=== PATIENT | male | born 1945 | race Caucasian/White ===

== ENCOUNTER 2017-08-27 14:58 | Emergency (ER) | payer BC ==
[2017-08-27 18:24] VITALS: BP 149/77
--- NOTE | 2017-08-27 20:18 | UC ---
Page Ragland Abhishek, scribed for Lucas Spear MD on 08/27/17 at 1923 . General HPI - HPI Summary HPI Summary: This patient is a 72 year old M presenting to [facility] accompanied by with a c/o of chest congestion and cough since week and a half ago. Pt believes symptoms are due to a visit to [place] a week and half ago. The patient rates the pain 0/10 in severity. Symptoms alleviated by nothing. Patient reports productive cough (white, yellow), diarrhea, VELASQUEZ, and no current pain unless aggravated with cough. Patient denies fever, and abdominal pain. PMHx includes asthma, Bronchitis (treated with medrol dose pack), HLD, enlarged prostate and GERD. Pt denies PMHx of DM, vitamin D deficiency, - History of Current Complaint Chief Complaint: UCRespiratory Stated Complaint: LOW GRADE TEMP/COUGH Time Seen by Provider: 08/27/17 18:50 Hx Obtained From: Patient Onset/Duration: Lasting Weeks - 1 week and a half, Still Present Timing: Constant Current Severity: None Pain Intensity: 0 Aggravating: Pt feels pain in throat when aggravated by cough Associated Signs & Symptoms: Positive: Headache - Sinus VELASQUEZ - Allergy/Home Medications Allergies/Adverse Reactions: Allergies Allergy/AdvReac Type Severity Reaction Status Date / Time No Known Allergies Allergy Verified 08/27/17 18:24 Home Medications: Home Medications Finasteride [Proscar] 5 mg PO DAILY 08/27/17 [History Confirmed 08/27/17] Gabapentin CAP(*) [Neurontin 300 CAP(*)] 300 mg PO BEDTIME 08/27/17 [History Confirmed 08/27/17] Multiple Vitamin [Multivitamins] 2 tab PO DAILY 08/27/17 [History Confirmed 08/05] PMH/Surg Hx/FS Hx/Imm Hx Cardiovascular History: Hypertension Respiratory History: Asthma, Bronchitis - Last episode 2012 - Surgical History Surgical History: Yes Surgery Procedure, Year, and Place: 1978 - open heart surgery - septal defect - Family History Known Family History: Positive: Other - [place], CVA - Social History Alcohol Use: Rare Substance Use Type: None Smoking Status (MU): Former Smoker Review of Systems Constitutional: Negative Skin: Negative Eyes: Negative ENT: Nasal Discharge, Other - Productive cough (white,yellow) Respiratory: Cough, Other - Chest congestion Cardiovascular: Negative Gastrointestinal: Diarrhea Genitourinary: Negative Motor: Negative Neurovascular: Negative Musculoskeletal: Negative Neurological: Negative Psychological: Negative All Other Systems Reviewed And Are Negative: Yes - Comments Additional Review of Systems Comments: Negative fever, and stomach pain. Physical Exam Triage Information Reviewed: Yes Vital Signs: Initial Vital Signs Temp 98.6 F 08/27/17 18:22 Pulse 66 08/27/17 18:22 Resp 18 08/27/17 18:22 BP 149/77 08/27/17 18:22 Pulse Ox 98 08/27/17 18:22 Vital Signs Reviewed: Yes - Additional Comments General: well-appearing, no pain distress Skin: warm, color reflects adequate perfusion, dry Head: normal Eyes: EOMI, JYOTI ENT: normal Neck: supple, nontender Respiratory: Bilateral rhonchi present in both lungs, no respiratory distress Cardiovascular: RRR Abdomen: soft, nontender Bowel: present Musculoskeletal: normal, strength/ROM intact Neurological: normal, sensory/motor intact, A&O x3 Psychological: affect/mood appropriate Course/Dx - Course Course Of Treatment: Medications reviewed, elevated blood pressure noted. - Differential Dx - Multi-Symptom Provider Diagnoses: BRONCHITIS WITH ASTHMA EXACERBATION Discharge - Discharge Plan Condition: Stable Disposition: HOME Prescriptions: Levofloxacin TAB* [Levaquin TAB*] 500 mg PO DAILY #10 tab Methylprednisolone [Medrol Dosepak 4 MG*] 4 mg PO .SEE RAMIRO INSTRUCTION #1 ramiro Patient Education Materials: Asthma (ED), Acute Bronchitis (ED) Referrals: Babak ESPOSITO,Naveed Villarreal [Primary Care Provider] - Additional Instructions: FOLLOW UP WITH YOUR DOCTOR. GET RECHECKED FOR ANY WORSENING OF YOUR CONDITION OR QUESTIONS OR CONCERNS. The documentation as recorded by the Page lomeli Abhishek accurately reflects the service I personally performed and the decisions made by me, Lucas Spear MD.
== END 2017-08-27 19:00 | disposition home or self-care (01) ==
LOC: UCEAST 14:58
DX: J45.901 Unspecified asthma with (acute) exacerbation (principal); I10 Essential (primary) hypertension; Z87.891 Personal history of nicotine dependence
CPT/HCPCS: 99202; G0463

== ENCOUNTER 2017-11-28 14:39 | Emergency (ER) | payer BC ==
--- NOTE | 2017-11-28 15:15 | UC ---
Elbow Pain - HPI Summary HPI Summary: ABOUT 2 WEEKS AGO SLIPPED ON THE SNOW AND STRUCK LEFT ELBOW ON BLACK[place]. SWELLING IS PERSISTENT WITH TENDERNESS OVER OLECRANON. NO ERYTHEMA OR WARMTH. NO FEVERS. - History of Current Complaint Chief Complaint: UCUpperExtremity Stated Complaint: ELBOW PAIN Time Seen by Provider: 11/28/17 15:02 Hx Obtained From: Patient Onset/Duration: Weeks, Traumatic, Still Present Severity Initially: Moderate Severity Currently: Moderate Pain Intensity: 2 Pain Scale Used: 0-10 Numeric Location Of Pain: Is Discrete @ - LEFT ELBOW Character: Aching Aggravating Factor(s): Movement - PRESSURE Alleviating Factor(s): Rest Associated Signs And Symptoms: Positive: Swelling. Negative: Redness, Bruising , Fever, Weakness - Allergies/Home Medications Allergies/Adverse Reactions: Allergies Allergy/AdvReac Type Severity Reaction Status Date / Time No Known Allergies Allergy Verified 08/27/17 18:24 PMH/Surg Hx/FS Hx/Imm Hx Endocrine History: Dyslipidemia Cardiovascular History: Hypertension Respiratory History: Asthma GI/ History: Gastroesophageal Reflux Other GI/ History: ENLARGED PROSTATE Other Neurological History: PERIPHERAL NEUROPATHY - Surgical History Surgical History: Yes Surgery Procedure, Year, and Place: 1978 - open heart surgery - septal defect - Family History Known Family History: Positive: Hypertension, Other - [place], CVA - Social History Alcohol Use: None Substance Use Type: None Smoking Status (MU): Former Smoker Review of Systems Constitutional: Negative Skin: Negative Respiratory: Negative Cardiovascular: Negative Gastrointestinal: Negative Musculoskeletal: Arthralgia, Edema All Other Systems Reviewed And Are Negative: Yes Physical Exam Triage Information Reviewed: Yes Appearance: Well-Appearing, No Pain Distress, Well-Nourished Vital Signs: Initial Vital Signs Temp 98.7 F 11/28/17 14:48 Pulse 73 11/28/17 14:48 Resp 18 11/28/17 14:48 BP 153/60 11/28/17 14:48 Pulse Ox 97 11/28/17 14:48 Vital Signs Reviewed: Yes Eyes: Positive: Conjunctiva Clear ENT: Positive: Hearing grossly normal Neck: Positive: Supple Respiratory: Positive: No respiratory distress, No accessory muscle use Cardiovascular: Positive: Pulses Normal Abdomen Description: Positive: Soft Musculoskeletal: Positive: Strength Intact, ROM Intact, Edema @ - LEFT ELBOW - OLECRANON BURSA, Other: - TTP LEFT OLECRANON PROCESS Neurological: Positive: Alert Psychological: Positive: Age Appropriate Behavior Skin: Negative: rashes Diagnostics - Radiology LEFT ELBOW XRAY Xray Interpretation: Positive (See Comments) - OSTEOARTHRITIS Radiology Interpretation Completed By: Radiologist Elbow Pain Course/Dx - Differential Dx/Diagnosis Provider Diagnoses: LEFT OLECRANON BURSITIS Discharge - Discharge Plan Condition: Stable Disposition: HOME Patient Education Materials: Elbow Bursitis (ED) Referrals: Babak ESPOSITO,Naveed Villarreal [Primary Care Provider] - If Needed Ruth Ann Saavedra MD [Medical Doctor] - If Needed Additional Instructions: XRAY TODAY UNREMARKABLE. YOU HAVE OLECRANON (ELBOW) BURSITIS. REST, COMPRESS WITH AN CHOCO BANDAGE AND AVOID TRAUMA TO THE AREA. IBUPROFEN IF NEEDED FOR DISCOMFORT. NO INDICATION TO DRAIN TODAY. IT SHOULD GO DOWN OVER TIME. CALL [facility]THO FOR F/U IF YOUR SYMPTOMS DO NOT IMPROVE OVER THE NEXT SEVERAL WEEKS. GO TO THE ER WITHOUT FAIL IF YOU DEVELOP FEVER, REDNESS, WARMTH, INCREASED PAIN OR ANY OTHER CONCERNING SYMPTOMS. YOUR BLOOD PRESSURE WAS ELEVATED TODAY. THIS MAY BE DUE TO YOUR ACUTE CONDITION. MONITOR AND FOLLOW-UP WITH YOUR PCP WITHIN 4 WEEKS IF IT HAS NOT RETURNED TO NORMAL.
--- NOTE | 2017-11-28 15:46 | RAD ---
INDICATION: Left elbow injury 2 weeks ago. Pain at the level of the olecranon COMPARISON: None TECHNIQUE: AP, lateral, and oblique views were obtained. FINDINGS: There is no acute bony change. There is moderate spurring about the proximal ulna and olecranon with soft tissue swelling over the olecranon which could be related to bursitis. There is no joint effusion. IMPRESSION: OSTEOARTHRITIS. POSSIBLE OLECRANON BURSITIS
[2017-11-28 15:50] VITALS: BP 153/60
== END 2017-11-28 16:25 | disposition home or self-care (01) ==
LOC: UCEAST 14:39
DX: M70.22 Olecranon bursitis, left elbow (principal); Y93.29 Activity, other involving ice and snow; M19.022 Primary osteoarthritis, left elbow
CPT/HCPCS: 99212; G0463

== ENCOUNTER 2019-02-13 13:44 | Emergency (ER) | payer BC ==
--- NOTE | 2019-02-13 14:42 | UC ---
Lower Extremity/Ankle HPI - HPI Summary HPI Summary: 73 y/o male presents to the urgent care c/o left foot pain for the past week. Pain in localized at the base on the first big toe and then radiating to the the medial aspect of foot and dorsal side. About 2 days ago he notice a rash on the dorsal side of his mid foot which is increasing in size. He has been walking a lot since he has to take her to different medical appt for her cancer. Pain today is 2/10 at rest and 7/10 w/ walking or movement or bending his big toe. He has taking Tylenol. Pt denies Hx of Gout, fever, calf pain, SOB , abdominal pain, N/v/d, numbness or tingling sensation over the left foot. - History of Current Complaint Chief Complaint: UCLowerExtremity Stated Complaint: FOOT PAIN Time Seen by Provider: 02/13/19 14:30 Hx Obtained From: Patient Onset/Duration: Gradual Onset Severity Initially: Mild Severity Currently: Moderate Pain Intensity: 7 - w/ movement or walking Pain Scale Used: 0-10 Numeric Aggravating Factor(s): Ambulation Alleviating Factor(s): Rest, OTC Meds Able to Bear Weight: Yes - Risk Factors Gout Risk Factors: Age Over 40, Male, Hypertension, Obesity DVT Risk Factors: Negative Septic Arthritis Risk Factor: Negative - Allergies/Home Medications Allergies/Adverse Reactions: Allergies Allergy/AdvReac Type Severity Reaction Status Date / Time No Known Allergies Allergy Verified 02/13/19 14:34 Home Medications: Home Medications Albuterol HFA INHALER* [Ventolin HFA Inhaler*] 2 puff INH Q6H PRN 02/13/19 [ History Confirmed 02/13/19] Cetirizine* [ZyrTEC 10 MG TAB*] 10 mg PO DAILY PRN 02/13/19 [History Confirmed 02/13/19] Everly-3S/Dha/Epa/Fish Oil [Fish Oil 1,200 mg Softgel] 1 each PO DAILY 02/13/19 [ History Confirmed 02/13/19] PMH/Surg Hx/FS Hx/Imm Hx Previously Healthy: Yes Endocrine History: Dyslipidemia Cardiovascular History: Hypertension Other Neurological History: B/L lower leg paresthesias - Surgical History Surgical History: Yes Surgery Procedure, Year, and Place: 1978 - open heart surgery - septal defect - Family History Known Family History: Positive: Hypertension, Other - [place], CVA - Social History Alcohol Use: Rare Substance Use Type: None Smoking Status (MU): Former Smoker When Did the Patient Quit Smoking/Using Tobacco: 1979 Review of Systems All Other Systems Reviewed And Are Negative: Yes Constitutional: Positive: Negative Skin: Positive: Rash - redness over his mid foot Eyes: Positive: Negative ENT: Positive: Negative Respiratory: Positive: Negative Cardiovascular: Positive: Negative Gastrointestinal: Positive: Negative Genitourinary: Positive: Negative Motor: Positive: Negative Neurovascular: Positive: Negative Musculoskeletal: Positive: Decreased ROM - left foot, Other: - left foot pain w / mild swelling Neurological: Positive: Negative Psychological: Positive: Negative Is Patient Immunocompromised?: No Physical Exam - Summary Physical Exam Summary: Vital Signs Reviewed: Yes General : well developed, well nourished obese male w/o any apparent distress Eyes: Positive: Conjunctiva Clear - PERRLA, EOMI ENT: Positive: Normal ENT inspection, Hearing grossly normal, Pharynx normal, TMs normal Neck: Positive: Supple, Nontender, No Lymphadenopathy Respiratory: Positive: Chest non-tender, Lungs clear, Normal breath sounds, No respiratory distress Cardiovascular: Positive: RRR, No Murmur, Pulses Normal Abdomen Description: Positive: Nontender, No Organomegaly, Soft. Negative: CVA Tenderness (R), CVA Tenderness (L) Bowel Sounds: Positive: Present Musculoskeletal: Positive: Strength Intact, ROM Intact, No Edema, RT- Foot/Toes : Pt is able to bear weight but ambulate with mild limping. RT foot :No surface trauma, ecchymosis, mild erythema w/ indistinct borderers over the dorsal side of the mid Rt foot, warm to touch w/ mild soft tissue swelling, no lesions, ulcers or break in skin integrity. The R foot is without obvious asymmetry or deformity when compared to the L foot. No bony step-off, No tenderness to palpation over toes, point tenderness over the dorsal side of mid foot and base of the First MCPJ, No sweling or erythema observed over the first toe, No tenderness of hind foot, Decrease plantar/dorsiflexion, inversion/eversion due to pain. Distal motor and neurovascular status are intact. Neurological Exam: Normal Psychological Exam: Normal Skin Exam: Normal Triage Information Reviewed: Yes Vital Signs: Initial Vital Signs Temp 98.1 F 02/13/19 14:27 Pulse 69 02/13/19 14:27 Resp 16 02/13/19 14:27 BP 160/88 02/13/19 14:27 Pulse Ox 98 02/13/19 14:27 Lower Extremity Course/Dx - Course Course Of Treatment: 73 y/o male presents to the urgent care c/o left foot pain for the past week. Pain in localized at the base on the first big toe and then radiating to the the medial aspect of foot and dorsal side. About 2 days ago he notice a rash on the dorsal side of his mid foot which is increasing in size. He has been walking a lot since he has to take her to different medical appt for her cancer. Pain today is 2/10 at rest and 7/10 w/ walking or movement or bending his big toe. He has taking Tylenol. Pt denies Hx of Gout, fever, calf pain, SOB , abdominal pain, N/v/d, numbness or tingling sensation over the left foot. Hx obtained. Left foot X-ray ordered, Impression: Degenerative changes of the first metatarsal phalangeal joint. Pt also w/ cellulitis over the dorsal side of the mid foot. Pt may be developing gout. Pt Rx Keflex PO and Indomethacin PO as directed below to alleviate symptoms. Pt strongly advised to f/u with his PCP in 2-3 days for further management since he may be developing Gout. Pt educated on dietary modifications. Pt's BP is elevated today advised to decrease salt in diet, monitor BP and f/u with PCP for further management. D/C instructions explained. Pt understood and agreed w/ plan of care. - Differential Dx/Diagnosis Differential Diagnosis/HQI/PQRI: Arthritis, Cellulitis, Contusion, Fracture ( Closed), Gout, Sprain, Strain, Tendonitis, Tenosynovitis Provider Diagnosis: Left foot pain, Cellulitis of left foot, Osteoarthritis, Uncontrolled hypertension Discharge - Sign-Out/Discharge Documenting (check all that apply): Patient Departure - D/C home All imaging exams completed and their final reports reviewed: Yes - Discharge Plan Condition: Stable Disposition: HOME Prescriptions: Cephalexin CAP* [Keflex CAP*] 500 mg PO TID #21 cap Indomethacin CAP* [Indocin CAP*] 25 mg PO TID PRN #30 cap PRN Reason: foot pain Patient Education Materials: Cellulitis (ED), Osteoarthritis (ED), Low-Sodium Diet (ED) Referrals: [facility] REFERRAL [Outside] - 3 Days Additional Instructions: 1-Take Indomethacin PO after meals as directed. Avoid strenuous exercise or standing for long periods of time. Elevate your foot 2-Take Keflex PO as directed to alleviate Cellulitis of your Rt foot. 3-Please f/u with your PCP in 2-3 days if not improvement of symptoms for further evaluation and treatment on possible Gout 4-Please encourage a low purine diet to help decrease uric acid levels 5- Your BP is elevated today. please decrease salt in your diet, monitor BP and if it continues to be elevated please f/u with your PCP for further management. - Billing Disposition and Condition Condition: STABLE Disposition: Home
[2019-02-13 15:00] VITALS: BP 160/88
== END 2019-02-13 16:10 | disposition home or self-care (01) ==
LOC: UCEAST 13:44
DX: I10 Essential (primary) hypertension (principal); E66.9 Obesity, unspecified; E78.5 Hyperlipidemia, unspecified; L03.116 Cellulitis of left lower limb; M19.072 Primary osteoarthritis, left ankle and foot; Z87.891 Personal history of nicotine dependence
CPT/HCPCS: 99212; G0463

== ENCOUNTER 2019-05-25 00:20 | Emergency (ER) | payer BC ==
[2019-05-25 01:05] LABS: ABS Eosinophils 0.2 10^3/ul (0-0.6); ABS Monocytes 0.7 10^3/ul (0-0.8); ABS Neutrophils 4.6 10^3/ul (1.5-7.7); Eosinophil % 2.6 %; Hematocrit 37 % (42-52); Hemoglobin 12.6 g/dL (14.0-18.0); Lymphocyte % 15.8 %; Mean Corpuscular HGB Conc 34 g/dL (31-36); Mean Corpuscular Hemoglobin 31 pg (27-31); Mean Corpuscular Volume 92 fL (80-94); Mean Platelet Volume 9.4 fL (7.4-10.4); Platelet Count 183 10^3/uL (150-450); Red Blood Count 4.04 10^6 /uL (4.18-5.48); Red Cell Distribution Width 14 % (10-15); White Blood Count 6.4 10^3/uL (3.5-10.8)
[2019-05-25 01:22] LABS: Albumin 3.9 g/dL (3.2-5.2); Albumin/Globulin Ratio 1.4 (1-3); BUN/Creatinine Ratio 15.8 (8-20); Calcium 9.1 mg/dL (8.6-10.3); EGFR Non-African American 52.9 (>60); Globulin 2.8 g/dL (2-4); Potassium 3.4 mmol/L (3.5-5.0); Total Bilirubin 0.3 mg/dL (0.2-1.0); Total Protein 6.7 g/dL (6.4-8.9)
[2019-05-25] MEDS ORDERED: Potassium Chlor TAB* 20 MEQ TAB.ER PO ONE (01:38)
[2019-05-25] MEDS ORDERED: Iodixanol* (CONTRAST) 320 MG/ML 100 ML SDV IV ONE (02:14)
--- NOTE | 2019-05-25 04:14 | ED ---
HPI Chest Pain - HPI Summary HPI Summary: The patient is a 74 y/o M arriving by ambulance to [facility] with a chief complaint of left anterior chest cramping and mid-sternal tightness starting intermittently around 2100 occurring every 15 minutes. He reports that he became nauseous without vomiting earlier in the night at dinner, and then he had the chest pain symptoms at home. He notes that he had dizziness and weakness , especially with transfer between the stretcher in the ED and from EMS. The pain is aggravated with sitting up and alleviated by lying flat. He is not currently in pain. Hx of HTN, asthma. He used inhalers to no relief. Surgical hx of septal defect. FHx of HTN, LA. Former smoker, rare EtOH, no substance use. - History of Current Complaint Chief Complaint: EDGeneral Time Seen by Provider: 05/25/19 00:29 Hx Obtained From: Patient Onset/Duration: Started Hours Ago - 2100, Still Present Time of Onset: 21:00 Timing: Intermittent, Lasting Minutes - 15 Initial Severity: Mild Current Severity: Moderate Pain Intensity: 0 Pain Scale Used: 0-10 Numeric Chest Pain Location: Mid Sternal, Left Anterior Chest Pain Radiates: No Character: Crushing, Tightness Aggravating Factor(s): Position - sitting up Alleviating Factor(s): Position - lying down Associated Signs and Symptoms: Positive: Chest Pain, Weakness, Dizziness, Nausea. Negative: Vomiting - Allergy/Home Medications Allergies/Adverse Reactions: Allergies Allergy/AdvReac Type Severity Reaction Status Date / Time No Known Allergies Allergy Verified 05/25/19 00:37 PMH/Surg Hx/FS Hx/Imm Hx Endocrine/Hematology History: Denies: Hx Diabetes, Hx Thyroid Disease Cardiovascular History: Reports: Hx Hypertension Respiratory History: Reports: Hx Asthma GI History: Denies: Hx Ulcer - Surgical History Surgery Procedure, Year, and Place: 1978 - open heart surgery - septal defect Infectious Disease History: No Infectious Disease History: Denies: Hx Hepatitis, Hx Human Immunodeficiency Virus (HIV), History Other Infectious Disease, Traveled Outside the [place] in Last 30 Days - Family History Known Family History: Positive: Hypertension, Other - LA, CVA - Social History Alcohol Use: Rare Substance Use Type: Reports: None Smoking Status (MU): Former Smoker Review of Systems Positive: Skin Diaphoresis Positive: Chest Pain - left anterior cramping, mid-sternal tightness Positive: Nausea. Negative: Vomiting Neurological: Other - dizziness Positive: Weakness All Other Systems Reviewed And Are Negative: Yes Physical Exam - Summary Physical Exam Summary: Constitutional: Well-developed, Well-nourished, Alert. (-) Distressed Skin: Warm, Dry HENT: Normocephalic; Atraumatic Eyes: Conjunctiva normal Neck: Musculoskeletal ROM normal neck. (-) JVD, (-) Stridor, (-) Tracheal deviation Cardio: Rhythm regular, rate normal, Heart sounds normal; Intact distal pulses; The pedal pulses are 2+ and symmetric. Radial pulses are 2+ and symmetric. (-) Murmur Pulmonary/Chest wall: Effort normal. (-) Respiratory distress, (-) Wheezes, (-) Rales Abd: Soft, (-) tenderness, (-) Distension, (-) Guarding, (-) Rebound Musculoskeletal: (-) Edema Lymph: (-) Cervical adenopathy Neuro: Alert, Oriented x3 Psych: Mood and affect Normal GCS: 15 Triage Information Reviewed: Yes Vital Signs On Initial Exam: Initial Vitals Temp Pulse Resp BP Pulse Ox 98.4 F 65 16 139/89 97 05/25/19 00:25 05/25/19 00:25 05/25/19 00:25 05/25/19 00:25 05/25/19 00:25 Vital Signs Reviewed: Yes - Maurilio Coma Scale Best Eye Response: 4 - Spontaneous Best Motor Response: 6 - Obeys Commands Best Verbal Response: 5 - Oriented Coma Scale Total: 15 Diagnostics - Vital Signs Vital Signs Temp Pulse Resp BP Pulse Ox 05/25/19 03:36 57 21 168/92 96 05/25/19 03:08 67 14 168/92 96 05/25/19 03:00 57 15 95 05/25/19 02:38 58 12 157/77 96 05/25/19 02:00 60 13 98 05/25/19 01:38 63 16 133/93 99 05/25/19 01:08 59 13 136/68 96 05/25/19 01:00 65 15 95 05/25/19 00:38 72 17 139/82 99 05/25/19 00:25 98.4 F 65 16 139/89 97 - Laboratory Lab Results: Lab Results 05/25/19 05/25/19 05/25/19 Range/Units 00:54 00:54 00:54 WBC 6.4 (3.5-10.8) 10^3/uL RBC 4.04 L (4.18-5.48) 10^6 /uL Hgb 12.6 L (14.0-18.0) g/dL Hct 37 L (42-52) % MCV 92 (80-94) fL MCH 31 (27-31) pg MCHC 34 (31-36) g/dL RDW 14 (10-15) % Plt Count 183 (150-450) 10^3/uL MPV 9.4 (7.4-10.4) fL Neut % (Auto) 70.8 % Lymph % (Auto) 15.8 % Mchenry % (Auto) 10.4 % Eos % (Auto) 2.6 % Baso % (Auto) 0.4 % Absolute Neuts (auto) 4.6 (1.5-7.7) 10^3/ul Absolute Lymphs (auto) 1.0 (1.0-4.8) 10^3/ul Absolute Monos (auto) 0.7 (0-0.8) 10^3/ul Absolute Eos (auto) 0.2 (0-0.6) 10^3/ul Absolute Basos (auto) 0.0 (0-0.2) 10^3/ul Absolute Nucleated RBC 0.0 10^3/ul Nucleated RBC % 0.0 Sodium 139 (135-145) mmol/L Potassium 3.4 L (3.5-5.0) mmol/L Chloride 106 (101-111) mmol/L Carbon Dioxide 25 (22-32) mmol/L Anion Gap 8 (2-11) mmol/L BUN 21 (6-24) mg/dL Creatinine 1.33 H (0.67-1.17) mg/dL Est GFR ( Amer) 64.0 (>60) Est GFR (Non-Af Amer) 52.9 (>60) BUN/Creatinine Ratio 15.8 (8-20) Glucose 152 H (70-100) mg/dL Lactic Acid 1.5 (0.5-2.0) mmol/L Calcium 9.1 (8.6-10.3) mg/dL Total Bilirubin 0.30 (0.2-1.0) mg/dL AST 19 (13-39) U/L ALT 15 (7-52) U/L Alkaline Phosphatase 51 (34-104) U/L Troponin I 0.00 (<0.04) ng/mL Total Protein 6.7 (6.4-8.9) g/dL Albumin 3.9 (3.2-5.2) g/dL Globulin 2.8 (2-4) g/dL Albumin/Globulin Ratio 1.4 (1-3) 05/25/19 Range/Units 03:37 WBC (3.5-10.8) 10^3/uL RBC (4.18-5.48) 10^6 /uL Hgb (14.0-18.0) g/dL Hct (42-52) % MCV (80-94) fL MCH (27-31) pg MCHC (31-36) g/dL RDW (10-15) % Plt Count (150-450) 10^3/uL MPV (7.4-10.4) fL Neut % (Auto) % Lymph % (Auto) % Mchenry % (Auto) % Eos % (Auto) % Baso % (Auto) % Absolute Neuts (auto) (1.5-7.7) 10^3/ul Absolute Lymphs (auto) (1.0-4.8) 10^3/ul Absolute Monos (auto) (0-0.8) 10^3/ul Absolute Eos (auto) (0-0.6) 10^3/ul Absolute Basos (auto) (0-0.2) 10^3/ul Absolute Nucleated RBC 10^3/ul Nucleated RBC % Sodium (135-145) mmol/L Potassium (3.5-5.0) mmol/L Chloride (101-111) mmol/L Carbon Dioxide (22-32) mmol/L Anion Gap (2-11) mmol/L BUN (6-24) mg/dL Creatinine (0.67-1.17) mg/dL Est GFR ( Amer) (>60) Est GFR (Non-Af Amer) (>60) BUN/Creatinine Ratio (8-20) Glucose (70-100) mg/dL Lactic Acid (0.5-2.0) mmol/L Calcium (8.6-10.3) mg/dL Total Bilirubin (0.2-1.0) mg/dL AST (13-39) U/L ALT (7-52) U/L Alkaline Phosphatase (34-104) U/L Troponin I 0.00 (<0.04) ng/mL Total Protein (6.4-8.9) g/dL Albumin (3.2-5.2) g/dL Globulin (2-4) g/dL Albumin/Globulin Ratio (1-3) Result Diagrams: 05/25/19 00:54 05/25/19 00:54 Lab Statement: Any lab studies that have been ordered have been reviewed, and results considered in the medical decision making process. - Radiology CXR Radiology Interpretation Completed By: Radiologist Summary of Radiographic Findings: Left lung base infiltrate questionable PNA. ED physician has reviewed this imaging report. - CT Brain CT CT Interpretation Completed By: Radiologist Summary of CT Findings: No acute intracranial abnormalities. ED physician has reviewed this imaging report. Chest/Thorax CTA CT Interpretation Completed By: Radiologist Summary of CT Findings: 1. No pulmonary emboli to the level of proximal segmental branches. Limited evaluation of distal segmental and subsegmental branches due to suboptimal opacification of contrast.2. Patchy bilateral groundglass lung opacities which are nonspecific finding and not necessarily indicative of significant pathology. However, in the appropriate clinical setting, pulmonary edema, pneumonia, air trapping or various causes of alveolitis should be considered. 3. Cardiomegaly. 4. A large hiatal hernia. 5. A 1.0 cm left hepatic cyst versus hemangioma. 6. Partially visualized 4.3 cm complex cystic lesion right lateral to the right kidney, of unknown origin. If clinically indicated, further evaluation with dedicated abdominal imaging maybe considered. - EKG 0030 Cardiac Rate: NL - 64 BPM EKG Rhythm: Sinus Rhythm Summary of EKG Findings: Normal sinus rhythm at 64 bpm, prolonged TN with first degree AV block, normal QRS, normal QTc, normal axis, normal ST, normal T- waves. Overall first degree AV block. Nonspecific EKG. Re-Evaluation - Re-Evaluation First Eval Re-Evaluation Time: 05:30 Change: Improved Comment: I discussed findings with patient. He is feeling better. Second Eval Re-Evaluation Time: 07:00 Comment: I discussed results and discharge home. Chest Pain Course/Dx - Course Course Of Treatment: The patient is a 74 y/o M arriving by ambulance to [facility] with a chief complaint of left anterior chest cramping and mid-sternal tightness starting intermittently around 2100 occurring every 15 minutes with nausea without vomiting, dizziness, and weakness. Upon physical exam, the patient exhibits no acute abnormalities. Blood work reveals RBC of 4.04, hgb of 12.6, potassium of 3.4, creatinine of 1.33 and glucose of 125. First troponin is 0.00. Second troponin is 0.01. EKG reveals NSR with overall first degree AV block, nonspecific EKG. CXR reveals left lung base infiltrate questionable PNA. Brain CT Impression: No acute intracranial abnormalities. Chest/ThoraxCTA Impression: 1. No pulmonary emboli to the level of proximal segmental branches. Limited evaluation of distal segmental and subsegmental branches due to suboptimal opacification of contrast.2. Patchy bilateral groundglass lung opacities which are nonspecific finding and not necessarily indicative of significant pathology. However, in the appropriate clinical setting, pulmonary edema, pneumonia, air trapping or various causes of alveolitis should be considered. 3. Cardiomegaly. 4. A large hiatal hernia. 5. A 1.0 cm left hepatic cyst versus hemangioma. 6. Partially visualized 4.3 cm complex cystic lesion right lateral to the right kidney, of unknown origin. If clinically indicated, further evaluation with dedicated abdominal imaging maybe considered. In the ED course, the patient was administered potassium chloride and Doxycycline. He is diagnosed with chest pain and questionable PNA. He will be discharged home. - Chest Pain Differential Diagnosis/HQI/PQRI: Other: - PNA - Diagnoses Provider Diagnoses: Chest pain Discharge - Sign-Out/Discharge Documenting (check all that apply): Patient Departure - Patient will be discharged home. Patient Received Moderate/Deep Sedation with Procedure: No - Discharge Plan Condition: Fair Disposition: HOME Prescriptions: DOXYcycline CAP(*) [DOXYcycline 100MG CAP(*)] 100 mg PO BID #19 cap Patient Education Materials: Community Acquired Pneumonia (ED) Print Language: AMERICAN Referrals: [facility] [Outside] No Primary Care Phys,NOPCP [Primary Care Provider] - - Billing Disposition and Condition Condition: FAIR Disposition: Home - Attestation Statements Document Initiated by Scribe: Yes Documenting Scribe: Sarah Navas Provider For Whom Scribe is Documenting (Include Credential): Dr. Neda Oliveros MD Scribe Attestation: I, Sarah Navas, scribed for Dr. Neda Oliveros MD on 05/25/19 at 0829. Scribe Documentation Reviewed: Yes Provider Attestation: The documentation as recorded by the scribe, Sarah Navas accurately reflects the service I personally performed and the decisions made by me, Dr. Neda Oliveros MD Status of Scribe Document: Viewed
[2019-05-25] MEDS ORDERED: DOXYcycline CAP(*) 100 MG PO ONE (06:45)
[2019-05-25 07:43] VITALS: BP 141/75
== END 2019-05-25 07:41 | disposition home or self-care (01) ==
LOC: ED 00:20
DX: R07.9 Chest pain, unspecified (principal); I10 Essential (primary) hypertension; I25.2 Old myocardial infarction; Z87.891 Personal history of nicotine dependence; R91.8 Other nonspecific abnormal finding of lung field; I51.7 Cardiomegaly; K44.9 Diaphragmatic hernia without obstruction or gangrene; K76.9 Liver disease, unspecified; N28.1 Cyst of kidney, acquired
CPT/HCPCS: 36415; 70450; 71045; 71275; 80053; 83605; 84484; 85025; 93005; 99285; A9270-GY; Q9967